=== PATIENT | female | born 1970 | race Caucasian/White ===

== ENCOUNTER 2022-06-29 16:24 | Emergency (ER) | payer SELFPAY ==
[2022-06-29] MEDS ORDERED: IBUPROFEN 600 MG TABLET (FP) PO ONE (16:50)
[2022-06-29 17:47] VITALS: BP 110/53; PULSE 75; RESP 18; TEMP 98.3; BMI 31.2
== END 2022-06-29 18:03 | disposition home or self-care (01) ==
LOC: JERFT 16:24
DX: M25.571 Pain in right ankle and joints of right foot (principal)
CPT/HCPCS: 73610-TC-RT-FY; 73630-TC-RT-FY; 99283-25